=== PATIENT | female | born 1950 | race Caucasian/White ===

== ENCOUNTER 2016-04-12 13:57 | Inpatient (IN) | payer MEDICARE, OTHER ==
[~2016-04-12] VITALS: Ht 167.6 cm; Wt 82.0 kg
[~2016-04-12 13:57] MED LIST: ADVAI500I PO; CITA-48 PO; DUONI NEB; FURO20 PO; LORA0.5T PO; MONT10 PO; NORC7.5T PO; PRED5TAB PO; PROT40TA PO
--- NOTE | 2016-04-12 14:43 | PD ---
HPI Chief Complaint: Fall Time Seen by Provider: 14:43 Travel History International Travel<30 days: No Contact w/Intl Traveler<30days: No History of Present Illness HPI Patient is a 65-year-old female brought in by EMS for evaluation after a fall. Patient presents complaining of right knee pain. Patient states she had tripped over her oxygen tubing. Patient is currently on hospice care for end- stage COPD. She reports the pain in her right knee has a 10 out of 10 and describes as aching and throbbing. She denies any head injury or loss of consciousness. PFSH Past Medical History Arthritis: Yes Asthma: No Anxiety: Yes Depression: Yes Cancer: No Cardiovascular Problems: No COPD: Yes (end-stage) Cerebrovascular Accident: No Diminished Hearing: No Deep Vein Thrombosis: Yes Endocrine: No GERD: Yes Genitourinary: No Immune Disorder: No Musculoskeletal: Yes (ARTHRITIS) Psychiatric: No Migraines: No Pneumonia: Yes Sleep Apnea: No Menopausal: Yes : 3 Para: 3 Miscarriage: 0 : 0 Past Surgical History Abdominal Surgery: No Appendectomy: Yes Cardiac Surgery: No Cholecystectomy: Yes Ear Surgery: No Endocrine Surgery: No Eye Surgery: Yes (LENS REPLACEMENT) Genitourinary Surgery: No Gynecologic Surgery: No Hysterectomy: Yes Oral Surgery: No Thoracic Surgery: No Other Surgery: Yes (blood clot removal right leg) Social History Alcohol Use: No Tobacco Use: Yes (2 PPD) Substance Use: No Allergies-Medications (Allergen,Severity, Reaction): Coded Allergies: Sulfa (Verified Allergy, Severe, 04/12/16) Reported Meds & Prescriptions Reported Meds & Active Scripts Active Reported Doc-Q-Lax (Sennosides-Docusate Sodium) 8.6-50 Mg Tab 1 Tab PO HS Pantoprazole (Pantoprazole Sodium) 40 Mg Tab 40 Mg PO DAILY Morphine Liq (Morphine Sulfate) 20 Mg/5 Ml Liq 10 Mg PO Q2HR PRN Morphine Liq (Morphine Sulfate) 20 Mg/5 Ml Liq 5 Mg PO Q2HR PRN Montelukast (Montelukast Sodium) 10 Mg Tab 10 Mg PO HS Duoneb (Ipratropium-Albuterol Neb) 0.5-2.5 Mg/3 Ml Neb 1 Nebule INH Q2HR PRN Omeprazole 20 Mg Tab 20 Mg PO DAILY Hydralazine (Hydralazine HCl) 50 Mg Tab 50 Mg PO TID Take with a meal Furosemide 20 Mg Tab 20 Mg PO DAILY PRN Dexamethasone 2 Mg Tab 2 Mg PO BID Citalopram (Citalopram Hydrobromide) 40 Mg Tab 40 Mg PO DAILY Lorazepam 0.5 Mg Tab 0.5 Mg PO Q2HR PRN Bisacodyl Supp (Bisacodyl) 10 Mg Supp 10 Mg RECTAL DAILY PRN Proair Respiclick Inh (Albuterol Sulfate) 90 Mcg/Act Aerp 2 Puff INH Q2HR PRN Hydrocodone-Acetaminophen 7.5-325 mg Tab 1 Tab PO Q6H PRN Review of Systems Except as stated in HPI: all other systems reviewed are Neg Musculoskeletal: Positive: Arthralgias, Limited ROM, Pain, Other (deformity to right knee) Physical Exam Narrative GENERAL: Well-developed, well-nourished, female. Appears older than stated age, resting comfortably in no acute distress. SKIN: Warm and dry. HEAD: Atraumatic. Normocephalic. EYES: Pupils equal and round. No scleral icterus. No injection or drainage. ENT: No nasal bleeding or discharge. Mucous membranes pink and moist. NECK: Trachea midline. No JVD. CARDIOVASCULAR: Regular rate and rhythm. No murmur appreciated. RESPIRATORY: No accessory muscle use. Diminished in bases significantly, expiratory wheezing noted in upper lung armijo. No tachypnea, no nasal flaring , no retractions noted. GASTROINTESTINAL: Abdomen soft, non-tender, nondistended. Hepatic and splenic margins not palpable. MUSCULOSKELETAL: Right knee deformity. No clubbing. No cyanosis. No edema. Positive pedal pulses, process of the second capillary refill. Patient is neurovascularly intact. NEUROLOGICAL: Awake and alert. No obvious cranial nerve deficits. Motor grossly within normal limits. Normal speech. PSYCHIATRIC: Appropriate mood and affect; insight and judgment normal. Data Data Last Documented VS Vital Signs Date Time Temp Pulse Resp B/P Pulse Ox O2 Delivery O2 Flow Rate FiO2 04/12/16 14:44 98.9 81 17 165/71 98 Orders Knee, Complete (4vws) (04/12/16 ) Ondansetron Inj (Zofran Inj) (04/12/16 14:45) Ice / Cold Pack PRN (04/12/16 14:40) Morphine Inj (Morphine Inj) (04/12/16 14:45) Consult Orthopedic (04/12/16 ) Diet Npo (04/13/16 Breakfast) [employer] Request For Service (04/12/16 16:45) Complete Blood Count With Diff (04/12/16 16:49) Basic Metabolic Panel (Bmp) (04/12/16 16:49) Act Partial Throm Time (Ptt) (04/12/16 16:49) Prothrombin Time / Inr (Pt) (04/12/16 16:49) Iv Access Insert/Monitor (04/12/16 16:49) Oximetry (04/12/16 16:49) ^ Improvement Intern / Telemetry (04/12/16 16:49) Diet Heart Healthy (04/12/16 Dinner) Albuterol-Ipratropium Neb (Duoneb Neb) (04/12/16 17:15) Morphine Inj (Morphine Inj) (04/12/16 17:15) (Hub Use Only)Inp Phy Cons/Ref (04/12/16 ) Admit Order (Ed Use Only) (04/12/16 17:21) Labs Laboratory Tests Test 04/12/16 17:00 White Blood Count 8.6 TH/MM3 Red Blood Count 3.58 MIL/MM3 Hemoglobin 10.3 GM/DL Hematocrit 32.0 % Mean Corpuscular Volume 89.5 FL Mean Corpuscular Hemoglobin 28.9 PG Mean Corpuscular Hemoglobin 32.3 % Concent Red Cell Distribution Width 14.8 % Platelet Count 146 TH/MM3 Mean Platelet Volume 9.2 FL Neutrophils (%) (Auto) 83.4 % Lymphocytes (%) (Auto) 10.3 % Monocytes (%) (Auto) 5.4 % Eosinophils (%) (Auto) 0.5 % Basophils (%) (Auto) 0.4 % Neutrophils # (Auto) 7.1 TH/MM3 Lymphocytes # (Auto) 0.9 TH/MM3 Monocytes # (Auto) 0.5 TH/MM3 Eosinophils # (Auto) 0.0 TH/MM3 Basophils # (Auto) 0.0 TH/MM3 CBC Comment DIFF FINAL Differential Comment Prothrombin Time 10.2 SEC Prothromb Time International 0.9 RATIO Ratio Activated Partial 23.4 SEC Thromboplast Time Sodium Level 142 MEQ/L Potassium Level 3.9 MEQ/L Chloride Level 102 MEQ/L Carbon Dioxide Level 36.0 MEQ/L Anion Gap 4 MEQ/L Blood Urea Nitrogen 13 MG/DL Creatinine 0.50 MG/DL Estimat Glomerular Filtration 124 ML/MIN Rate Random Glucose 124 MG/DL Calcium Level 8.1 MG/DL MDM Medical Decision Making Medical Screen Exam Complete: Yes Emergency Medical Condition: Yes Interpretation(s) Vital Signs Date Time Temp Pulse Resp B/P Pulse Ox O2 Delivery O2 Flow Rate FiO2 04/12/16 14:44 98.9 81 17 165/71 98 Differential Diagnosis Fracture versus dislocation versus sprain versus strain versus other Narrative Course Patient is a 65-year-old female who presented to emergency for evaluation of right knee pain after she sustained a mechanical fall at home this morning. She tripped over her oxygen tubing. Her vital signs are stable, she is on her home dose of oxygen at 10 L. She reports a 10 out of 10 pain, pain medication ordered by my attending physician. Imaging ordered. X-ray of the right knee shows a distal right femoral metaphysis fracture. Dr. Moctezuma was paged for consult. He recommended patient be admitted to medicine, camvas knee splint be placed as well as a cold machine on the right knee. Patient is to be made nothing by mouth after midnight. Patient needs a medically cleared before surgery. Discussed with residents who accepted admission for Dr. Sorenson. Preop labs, chest x-ray, EKG ordered and pending. CBC, chemistry, coags reviewed and are unremarkable Chest x-ray shows linear atelectasis at the right lung base. Diagnosis Primary Impression: Fracture of distal femur Qualified Code: S72.401A - Closed fracture of distal end of right femur, unspecified fracture morphology, initial encounter Additional Impression: COPD (chronic obstructive pulmonary disease) Qualified Code: J44.9 - Chronic obstructive pulmonary disease, unspecified COPD type Admitting Information Admitting Physician Requests: Admit Condition: Stable Naye Belle Apr 12, 2016 14:43
[2016-04-12 14:44] VITALS: BP 165/71; PULSE 81; RESP 17; TEMP 98.9; O2SAT 98
[2016-04-12] MEDS ORDERED: MORPHINE SULFATE 4 MG/ML INJ IV PUSH ONE ×2 (14:45→17:15)
[2016-04-12] MEDS ORDERED: ONDANSETRON HCL 4 MG/2 ML VIAL IV PUSH ONE (14:45)
--- NOTE | 2016-04-12 15:51 | RADRPT ---
EXAM DATE/TIME: 04/12/2016 15:41 [facility] COMPARISON: No previous studies available for comparison. INDICATIONS : Tripped and fell on right knee, right knee is in bent position and is swollen and painful, unable to extend leg MEDICAL HISTORY : None. SURGICAL HISTORY : Total knee replacement, right. right knee replaced in 2006 ENCOUNTER: Initial ACUITY: 1 day PAIN SCORE: 10/10 LOCATION: Right knee FINDINGS: Four view examination of the right knee demonstrates a total knee replacement. There is an angulated supracondylar metaphyseal fracture of the distal right femur. The proximal tibia and fibular are intact. CONCLUSION: Angulated fracture involving the distal right femoral metaphysis cranial to a femoral prosthesis. Status post previous joint replacement. Mikey Alarcon MD on April 12, 2016 at 15:47 Board Certified Radiologist. This report was verified electronically.
[2016-04-12] MEDS ORDERED: FLUC200T2 PO (15:59)
[2016-04-12] MEDS ORDERED: ALBU1AER5 INH (15:59)
[2016-04-12] MEDS ORDERED: CITA40TA4 PO (15:59)
[2016-04-12] MEDS ORDERED: MORP10S2 PO (15:59)
[2016-04-12] MEDS ORDERED: PRED20 PO (15:59)
[2016-04-12] MEDS ORDERED: FEXO180T PO (15:59)
[2016-04-12] MEDS ORDERED: IPRASOL INH (15:59)
[2016-04-12] MEDS ORDERED: PANT40TA3 PO (15:59)
[2016-04-12] MEDS ORDERED: MONT10TA4 PO (15:59)
[2016-04-12] MEDS ORDERED: HYDR-3580 PO (15:59)
[2016-04-12] MEDS ORDERED: AZIT250T3 PO (15:59)
[2016-04-12] MEDS ORDERED: FURO20TA PO (15:59)
[2016-04-12] MEDS ORDERED: HYDR50TA15 PO (15:59)
[2016-04-12] MEDS ORDERED: DEXA2TAB PO (15:59)
[2016-04-12] MEDS ORDERED: LORA-373 PO (15:59)
[2016-04-12] MEDS ORDERED: BENZ1CAP8 PO (15:59)
[2016-04-12] MEDS ORDERED: BISA10SU3 RECTAL (15:59)
[2016-04-12] MEDS ORDERED: DOC-8.6T PO (15:59)
[2016-04-12] MEDS ORDERED: OMEP20TA PO (15:59)
[2016-04-12] MEDS ORDERED: LORA10TA PO (15:59)
[2016-04-12 17:29] LABS: AUTOMATED NEUTROPHIL # 7.1 TH/MM3 (1.8-7.7); BASOPHIL % 0.4 % (0.0-2.0); EOSINOPHIL % 0.5 % (0.0-4.0); HEMO FLAGS DIFF FINAL; LYMPH % 10.3 % (9.0-44.0); LYMPHOCYTE # 0.9 TH/MM3 (1.0-4.8); MEAN CELL VOLUME 89.5 FL (80.0-100.0); MEAN CORPUSCULAR HEMOGLOBIN 28.9 PG (27.0-34.0); MEAN CORPUSCULAR HGB CONC 32.3 % (32.0-36.0); MONO % 5.4 % (0.0-8.0); NEUT % 83.4 % (16.0-70.0); PLATELET COUNT 146 TH/MM3 (150-450); RED BLOOD COUNT 3.58 MIL/MM3 (4.00-5.30); RED CELL DISTRIBUTION WIDTH 14.8 % (11.6-17.2); WHITE BLOOD COUNT 8.6 TH/MM3 (4.0-11.0)
[2016-04-12] MEDS: RESP: ALBUTEROL 2.5 MG/IPRATROPIUM 0.5 MG NEB (SCH) INH ×2 (17:32→17:33)
[2016-04-12 17:44] LABS: APTT (PATIENT) 23.4 SEC (24.3-30.1); INTERNATIONAL NORMALIZED RATIO 0.9 RATIO; PROTHROMBIN TIME - PATIENT 10.2 SEC (9.8-11.6)
[2016-04-12 18:10] LABS: POTASSIUM 3.9 MEQ/L (3.5-5.1)
--- NOTE | 2016-04-12 18:14 | RADRPT ---
EXAM DATE/TIME: 04/12/2016 17:44 [facility] COMPARISON: CHEST SINGLE AP, January 08, 2016, 18:12. INDICATIONS : Evaluate for pneumonia,pneumothorax, and communicable diseases. Pre-op for right leg surgery. MEDICAL HISTORY : Chronic obstructive pulmonary disease. SURGICAL HISTORY : None. ENCOUNTER: Initial ACUITY: 1 day PAIN SCORE: 0/10 LOCATION: Bilateral chest FINDINGS: There is subsegmental atelectasis at the right lung base. Lungs are otherwise clear. No pneumothorax or pneumonia. Cardiomegaly and aortic calcification the osseous structures are intact. CONCLUSION: Linear atelectasis right base. Andres Warren MD on April 12, 2016 at 18:13 Board Certified Radiologist. This report was verified electronically.
[2016-04-12 19:00] VITALS: BP 127/74; PULSE 94; RESP 18; O2SAT 96
[2016-04-12] MEDS ORDERED: FUROSEMIDE 20 MG TAB PO PRN (19:00)
--- NOTE | 2016-04-12 19:11 | HHI.HP ---
[facility] Service Family Medicine Primary Care Physician Tyron Smith M.D. Admission Diagnosis FEMUR FRACTURE/COPD Diagnoses: Chief Complaint: leg pain International Travel<30 Days: No Contact w/Intl Traveler<30days: No Known Affected Area: No History of Present Illness Patient is a 65 year old female with a PMH significant for COPD on 10L O2 and history of PE who presents today with leg pain after a fall. Patient states that she was moving objects in her closet when she turned around and tripped over her oxygen cord. She fell and landed on the right side of her face and right leg. She immediately felt pain in her right leg. She denies LOC. She was not dizzy preceding the fall and remembers the fall. Her pain is currently a 5-6/10. The pain improves with morphine. She states that until the fall, she was in her baseline state of health. She denies any fever, chills, abdominal pain, headache, or visual changes. She endorses nausea. Of note, she is on Hospice and is DNR. Review of Systems Constitutional: DENIES: Fever, Chills, Dizziness Eyes: DENIES: Vision loss Ears, nose, mouth, throat: DENIES: Throat pain Respiratory: COMPLAINS OF: Shortness of breath, DENIES: Cough Cardiovascular: DENIES: Chest pain, Lower Extremity Edema Gastrointestinal: DENIES: Abdominal pain, Diarrhea, Nausea, Vomiting Genitourinary: DENIES: Hematuria, Dysuria Musculoskeletal: COMPLAINS OF: Muscle aches, DENIES: Back pain Integumentary: DENIES: Rash Neurologic: DENIES: Headache Past Family Social History Past Medical History COPD, Chronic respiratory failure on 10L O2 at home, prior intubation Tobacco H/o PE Past Surgical History Cholecystectomy Hysterectomy Right Knee Replacement Reported Medications Reported Meds & Active Scripts Active Reported Fexofenadine (Fexofenadine HCl) 180 Mg Tab 180 Mg PO DAILY Loratadine 10 Mg Tab 10 Mg PO DAILY Prednisone 20 Mg Tab 40 Mg PO DIRECTED Benzonatate 100 Mg Cap 100 Mg PO TID PRN Fluconazole 200 Mg Tab 200 Mg PO DAILY Azithromycin 250 Mg Tab 250 Mg PO DAILY Hydrocodone-Acetaminophen 7.5-325 mg Tab 1 Tab PO Q6H PRN Doc-Q-Lax (Sennosides-Docusate Sodium) 8.6-50 Mg Tab 1 Tab PO HS Pantoprazole (Pantoprazole Sodium) 40 Mg Tab 40 Mg PO DAILY Morphine Liq (Morphine Sulfate) 20 Mg/5 Ml Liq 10 Mg PO Q2HR PRN Morphine Liq (Morphine Sulfate) 20 Mg/5 Ml Liq 5 Mg PO Q2HR PRN Montelukast (Montelukast Sodium) 10 Mg Tab 10 Mg PO HS Duoneb (Ipratropium-Albuterol Neb) 0.5-2.5 Mg/3 Ml Neb 1 Nebule INH Q2HR PRN Omeprazole 20 Mg Tab 20 Mg PO DAILY Hydralazine (Hydralazine HCl) 50 Mg Tab 50 Mg PO TID Take with a meal Furosemide 20 Mg Tab 20 Mg PO DAILY PRN Dexamethasone 2 Mg Tab 2 Mg PO BID Citalopram (Citalopram Hydrobromide) 40 Mg Tab 40 Mg PO DAILY Lorazepam 0.5 Mg Tab 0.5 Mg PO Q2HR PRN Bisacodyl Supp (Bisacodyl) 10 Mg Supp 10 Mg RECTAL DAILY PRN Proair Respiclick Inh (Albuterol Sulfate) 90 Mcg/Act Aerp 2 Puff INH Q2HR PRN Allergies: Coded Allergies: Sulfa (Verified Allergy, Severe, 04/12/16) Levaquin (Verified Allergy, Mild, Generalized Rash, 04/12/16) Active Ordered Medications Current Medications Medications (Trade) Dose Ordered Sig/Marcie Route Start Time Stop Time Status Last Admin (CeleXA) 40 mg DAILY PO 04/13/16 09:00 (Lasix) 20 mg DAILY PRN PO 04/12/16 19:00 (Claritin) 10 mg DAILY PO 04/13/16 09:00 (Singulair) 10 mg HS PO 04/12/16 21:00 (Protonix) 40 mg DAILY PO 04/13/16 09:00 (Vonnie-Colace) 1 tab HS PO 04/12/16 21:00 (NS Flush) 2 ml UNSCH PRN FLUSH 04/12/16 19:15 (NS Flush) 2 ml BID FLUSH 04/12/16 21:00 (Tylenol) 650 mg Q4H PRN PO 04/12/16 19:15 (Zofran Inj) 4 mg Q6H PRN IVP 04/12/16 19:15 (Narcan Inj) 0.4 mg UNSCH PRN IV 04/12/16 19:15 Family History Significant family history of heart disease and unspecified cancer. Social History Tobacco: 1/2 ppd x 50 years Alcohol: None Illicit Drug Use: None Lives alone. On hospice. Physical Exam Vital Signs Vital Signs Date Time Temp Pulse Resp B/P Pulse Ox O2 Delivery O2 Flow Rate FiO2 04/12/16 14:44 98.9 81 17 165/71 98 Physical Exam GENERAL: This is a well-nourished, well-developed female patient who appears in pain. SKIN: No rashes, ecchymoses or lesions. Cool and dry. Pallor. HEAD: Atraumatic. Normocephalic. No temporal or scalp tenderness. EYES: Pupils equal round and reactive. Extraocular motions intact. No scleral icterus. No injection or drainage. ENT: Nose without bleeding, purulent drainage or septal hematoma. Throat without erythema, tonsillar hypertrophy or exudate. Uvula midline. Airway patent. Mucous membranes dry. NECK: Trachea midline. No JVD or lymphadenopathy. Supple, nontender, no meningeal signs. CARDIOVASCULAR: Regular rate and rhythm without murmurs, gallops, or rubs. RESPIRATORY: Decreased breath sounds bilaterally. Breath sounds equal bilaterally. Occasional inspiratory and expiratory wheezes bilaterally. GASTROINTESTINAL: Abdomen soft, non-tender, nondistended. No hepato-splenomegaly , or palpable masses. No guarding. MUSCULOSKELETAL: Right lower extremity in immobilizer brace. Strong pedal pulses bilaterally. Full ROM of toes bilaterally. NEUROLOGICAL: Awake and alert. Cranial nerves II through XII intact. Motor and sensory grossly within normal limits. Normal speech. Laboratory Laboratory Tests Test 04/12/16 17:00 White Blood Count 8.6 Red Blood Count 3.58 Hemoglobin 10.3 Hematocrit 32.0 Mean Corpuscular Volume 89.5 Mean Corpuscular Hemoglobin 28.9 Mean Corpuscular Hemoglobin 32.3 Concent Red Cell Distribution Width 14.8 Platelet Count 146 Mean Platelet Volume 9.2 Neutrophils (%) (Auto) 83.4 Lymphocytes (%) (Auto) 10.3 Monocytes (%) (Auto) 5.4 Eosinophils (%) (Auto) 0.5 Basophils (%) (Auto) 0.4 Neutrophils # (Auto) 7.1 Lymphocytes # (Auto) 0.9 Monocytes # (Auto) 0.5 Eosinophils # (Auto) 0.0 Basophils # (Auto) 0.0 CBC Comment DIFF FINAL Differential Comment Prothrombin Time 10.2 Prothromb Time International 0.9 Ratio Activated Partial 23.4 Thromboplast Time Sodium Level 142 Potassium Level 3.9 Chloride Level 102 Carbon Dioxide Level 36.0 Anion Gap 4 Blood Urea Nitrogen 13 Creatinine 0.50 Estimat Glomerular Filtration 124 Rate Random Glucose 124 Calcium Level 8.1 Result Diagram: 04/12/16 1700 04/12/16 1700 Imaging Last Impressions Knee X-Ray 04/12/16 0000 Signed Impressions: Service Date/Time: Tuesday, April 12, 2016 15:41 - CONCLUSION: Angulated fracture involving the distal right femoral metaphysis cranial to a femoral prosthesis. Status post previous joint replacement. Mikey Alarcon MD Assessment and Plan Assessment and Plan Patient is a 65 year old female with a PMH significant for COPD on 10L O2 and history of PE who presents today with leg pain after a fall and is admitted for distal right femoral fracture. Code Status DNR Discussed Condition With dw Dr. Sorenson and Dr. Bergman Problem List: (1) Fracture of distal femur Status: Acute Plan: Right knee Xray significant for angulated fracture involving the distal right femoral metaphysis cranial to a femoral prosthesis. Status post previous joint replacement. Pre-Op labs: CBC shows mild anemia, BMP shows elevated CO2 of 36.0, coags wnl CXR shows linear atelectasis at right base. Plan: - Pain control with Giltner 5-325mg PRN pain 3-5, Giltner 10-325mg PRN pain 6-10, Morphine 4mg IV Q3H PRN Breakthrough pain - Consult Orthopedic Surgery, Dr. Moctezuma- plan for surgery in AM - NPO after midnight - Incentive spirometry - Obtain EKG (2) COPD (chronic obstructive pulmonary disease) Status: Chronic Plan: On 10L O2 at home Currently saturating 96% on 8L O2 DNR, on Hospice Duonebs Q4H PRN SOB/Wheezing Continue home Lasix 20mg PO daily (3) GERD (gastroesophageal reflux disease) Status: Acute Plan: Continue home dose of Protonix 40mg PO daily (4) MDD (major depressive disorder) Status: Acute Plan: Continue home dose of Celexa 40mg PO daily (5) Nutrition, metabolism, and development symptoms Status: Acute Plan: Fluids: None at this time, careful with advanced COPD Electrolytes: wnl, continue to monitor and replete as needed Nutrition: Heart Healthy Diet, NPO after midnight in anticipation of surgery in AM DVT PPx: SCD's, hold chemical anticoagulation for surgery in AM Physician Certification 2 Midnight Certification Type: Admission for Inpatient Services Order for Inpatient Services The services are ordered in accordance with Medicare regulations or non- Medicare payer requirements, as applicable. In the case of services not specified as inpatient-only, they are appropriately provided as inpatient services in accordance with the 2-midnight benchmark. Estimated LOS (days): 2 days is the estimated time the patient will need to remain in the hospital, assuming treatment plan goals are met and no additional complications. Post-Hospital Plan: Home Problem Qualifiers (1) Fracture of distal femur: Qualified Code: S72.401A - Closed fracture of distal end of right femur, unspecified fracture morphology, initial encounter (2) COPD (chronic obstructive pulmonary disease): Qualified Code: J44.9 - Chronic obstructive pulmonary disease, unspecified COPD type (3) GERD (gastroesophageal reflux disease): Qualified Code: K21.9 - Gastroesophageal reflux disease, esophagitis presence not specified (4) MDD (major depressive disorder): Qualified Code: F33.1 - Moderate episode of recurrent major depressive disorder Angela Posey MD R2 Apr 12, 2016 19:11
[2016-04-12] MEDS ORDERED: ACETAMINOPHEN 325 MG TAB PO PRN (19:15)
[2016-04-12] MEDS ORDERED: NALOXONE HCL 0.4 MG/ML AMP IV PRN ×2 (19:15→20:15)
[2016-04-12] MEDS ORDERED: SODIUM CHLORIDE 0.9% FLUSH 5 ML FLUSH FLUSH PRN (19:15)
[2016-04-12] MEDS ORDERED: ONDANSETRON HCL 4 MG/2 ML VIAL IVP PRN (19:15)
[2016-04-12] MEDS ORDERED: ACETAMINOPHEN/HYDROcodone 325 MG/5 MG TAB PO PRN (20:15)
[2016-04-12] MEDS ORDERED: ACETAMINOPHEN/HYDROcodone 325 MG/10 MG TAB PO PRN (20:15)
[2016-04-12] MEDS: MONTELUKAST SODIUM 10 MG TAB PO SCH (21:00)
[2016-04-12] MEDS: DOCUSATE SODIUM 50 MG/SENNA 8.6 MG TAB PO SCH (21:00)
[2016-04-12] MEDS: MORPHINE SULFATE 4 MG/ML INJ IV PRN (21:08)
[2016-04-12] MEDS: LACTATED RINGER'S 1000 ML IV SCH (22:15)
[2016-04-12] MEDS ORDERED: SODIUM CHLORID 0.9% 500 ML IV SCH (22:15)
[2016-04-12] MEDS ORDERED: METOPROLOL TARTRATE 25 MG TAB PO PRN (22:15)
[2016-04-12] MEDS ORDERED: INSULIN HUMAN REGULAR 1,000 UNITS/10 ML VIAL SQ PRN (22:15)
[2016-04-13] VITALS (10 sets, daily range): BP systolic 114–141; BP diastolic 55–76; PULSE 72–100; RESP 18–20; TEMP 96.4–99.8; O2SAT 90–99
[2016-04-13] MEDS: RESP: ALBUTEROL 2.5 MG/IPRATROPIUM 0.5 MG NEB (PRN) NEB ×3 (00:29→16:10)
[2016-04-13] MEDS: MORPHINE SULFATE 4 MG/ML INJ IV PRN ×2 (05:44→08:35)
[2016-04-13 06:26] LABS: BACTERIA, URINE OCC /hpf; BLOOD, URINE SMALL (NEG); GLUCOSE,URINE NEG (NEG); KETONE, URINE NEG (NEG); MUCUS URINE FEW /lpf (OCC); NITRITE,URINE NEG (NEG); PH, URINE 5.5 (5.0-8.5); RENAL EPITHELIAL CELLS <1 /hpf; SQUAMOUS EPITHELIAL CELL URINE 2 /hpf (0-5); TRANSITIONAL EPI CELLS, URINE <1 /hpf; URINE COLOR YELLOW (YELLW/STRAW)
[2016-04-13 06:26] LABS: BASOPHIL % 0.3 % (0.0-2.0); HEMATOCRIT 31.6 % (35.0-46.0); HEMO FLAGS DIFF FINAL; LYMPH % 8.6 % (9.0-44.0); MEAN CELL VOLUME 89.5 FL (80.0-100.0); MEAN CORPUSCULAR HEMOGLOBIN 28.3 PG (27.0-34.0); MEAN CORPUSCULAR HGB CONC 31.6 % (32.0-36.0); MONO % 6.6 % (0.0-8.0); NEUT % 84.5 % (16.0-70.0); PLATELET COUNT 156 TH/MM3 (150-450); RED BLOOD COUNT 3.53 MIL/MM3 (4.00-5.30); RED CELL DISTRIBUTION WIDTH 14.4 % (11.6-17.2); WHITE BLOOD COUNT 11.8 TH/MM3 (4.0-11.0)
[2016-04-13 06:27] LABS: COMMENT (UR) CULTURE INDICATED; CULTURE IF INDICATED CULTURE INDICATED
[2016-04-13 06:37] LABS: INTERNATIONAL NORMALIZED RATIO 0.9 RATIO; PROTHROMBIN TIME - PATIENT 10.3 SEC (9.8-11.6)
--- NOTE | 2016-04-13 06:38 | PD.ORT.PN ---
Subjective Subjective Remarks s/p fall at home right knee pain. significant history of smoking and end stage COPD on 10L of O2 at home. Objective Vitals Vital Signs Date Time Temp Pulse Resp B/P Pulse Ox O2 Delivery O2 Flow Rate FiO2 04/13/16 04:50 97.7 89 20 131/69 95 04/13/16 03:14 93 Nasal Cannula 9.00 04/13/16 01:05 98.2 72 20 135/76 95 04/12/16 19:00 94 18 127/74 96 Nasal Cannula 8 04/12/16 14:44 98.9 81 17 165/71 98 Result Diagram: 04/13/16 0458 04/12/16 1700 Other Results Laboratory Tests Test 04/12/16 17:00 Prothrombin Time 10.2 SEC (9.8-11.6) Prothromb Time International 0.9 RATIO Ratio Objective Remarks RLE: +CKS. knee flexed. full sensation distally. Assessment & Plan Assessment and Plan 1) Right Periprosthetic Distal Femur Fx -maintain brace -elevate leg so heel off of bed to prevent ulcer -NWB -resume diet -patient not a good surgical candidate due to health of lungs -will await medical consult and recommendations. if medicine decides she would do well with surgery, could potentially proceed. Chirag Bedolla Apr 13, 2016 06:38
[2016-04-13 06:50] LABS: ALKALINE PHOSPHATASE 56 U/L (45-117); ALT (GPT) 20 U/L (10-53); ANION GAP 4 MEQ/L (5-15); AST (GOT) 15 U/L (15-37); BICARBONATE 39.3 MEQ/L (21.0-32.0); BLOOD UREA NITROGEN 19 MG/DL (7-18); CHLORIDE 98 MEQ/L (98-107); GLOMERULAR FILTRATION RATE 100 ML/MIN (>89); POTASSIUM 4.1 MEQ/L (3.5-5.1); SODIUM (NA) 141 MEQ/L (136-145); TOTAL BILIRUBIN ADULT 0.4 MG/DL (0.2-1.0)
--- NOTE | 2016-04-13 06:55 | MB ---
cc: YARITZA JAEGER DATE OF CONSULTATION 04/13/2016 REASON FOR CONSULTATION Right distal femur periprosthetic fracture. CONSULTING PHYSICIAN Dr. Jl Sorenson MARISA Santo is a 65-year-old female who has a long history of COPD. She is chronically on 10 liters of oxygen at home. She was moving objects in her closet when she tripped over her oxygen cord. She fell and landed on her right side. She had immediate right leg pain. She denies dizziness, syncope or loss of consciousness. She was unable to stand or ambulate. Pain is worse with movement and is improved with rest. She is currently under Hospice care and is a DNR. She is currently awake and alert on the orthopedic floor. Her only complaint is right leg and knee. PAST MEDICAL HISTORY ILLNESSES 1. COPD 2. Tobacco abuse 3. History of PE. SURGERIES 1. Cholecystectomy 2. Hysterectomy 3. Right knee replacement MEDICATIONS 1. Fexofenadine 2. Loratadine 3. Prednisone 4. Fluconazole 5. Azithromycin 6. Hydrocodone 7. Pantoprazole 8. Morphine 9. DuoNeb 10. Omeprazole 11. Hydralazine 12. Citalopram 13. Dexamethasone 14. ProAir ALLERGIES SULFA FAMILY HISTORY Positive for heart disease. SOCIAL HISTORY The patient has been smoking for 50 years. She denies alcohol or drug use. REVIEW OF SYSTEMS The patient denies headache, visual changes, neck pain, chest pain, abdominal pain, nausea, vomiting or recent weight loss or numbness or tingling of extremities. She has chronic shortness of breath. She has right leg pain. PHYSICAL EXAMINATION The patient is a well-developed, well-nourished 65-year female who appears older than her stated age. She is awake and alert. VITAL SIGNS: Temperature 97.7, pulse 89, respirations 20, blood pressure 131/69, O2 sat is 95% on 9 liters nasal cannula. HEAD: The patient is normocephalic. EYES: Pupils are equal. NECK: Soft, nontender. Trachea is midline. ABDOMEN: Soft, nontender, nondistended. EXTREMITIES: Examination of bilateral upper extremities reveals no obvious pain or deformity with shoulder, elbow or wrist motion. She has intact sensation in all fingers. She has good cap refill in all fingers. Skin is intact. Radial pulses are palpable. Sensation is intact in the radial, ulnar and median nerve distributions. Examination of left leg reveals no pain with hip, knee or ankle motion. Skin is intact. Dorsalis pedis pulse is palpable. Sensation is grossly intact. Examination of right leg reveals minimal tenderness around her hip. She is diffusely tender around the knee. Thigh and calf compartments are soft. She has pain with any motion. Sensation is grossly intact to her right foot. She has good cap refill in her foot. X-RAYS X-rays of right knee reviewed. X-rays reveal an angulated right distal femur periprosthetic fracture. IMPRESSION 1. Angulated right distal femur periprosthetic fracture. 2. COPD 3. Chronic smoking dependence PLAN Treatment options were discussed with the patient. At this point, the patient is not a very good surgical candidate. Her end-stage COPD would make her a very high risk candidate for surgery. Option would include nonoperative treatment with a knee immobilizer. Given her type of fracture, I am not certain that the fracture would go head and heal. However with surgery, the patient has a high risk of developing respiratory failure and may be on a ventilator chronically. Nonoperative treatment may be the patient's best option. The patient elected think about these options. All questions were answered. MD TONY Montejo/LAM /6:39 AM /6:48 AM OTF
[2016-04-13] MEDS: CITALOPRAM HYDROBROMIDE 40 MG TAB PO SCH (08:31)
[2016-04-13] MEDS: PANTOPRAZOLE SOD 40 MG DELAYED RELEASE TAB PO SCH (08:31)
[2016-04-13] MEDS: cefTRIAXone INJ 1,000 MG in SODIUM CHLORIDE 0.9% INJ 100 ML IV SCH (08:31)
[2016-04-13] MEDS: LORATADINE 10 MG TAB PO SCH (08:31)
[2016-04-13] MEDS: SODIUM CHLORIDE 0.9% FLUSH 5 ML FLUSH FLUSH SCH ×2 (08:32→21:00)
[2016-04-13] MEDS ORDERED: HYDROmorphone HCL 2 MG TAB PO PRN (10:15)
[2016-04-13] MEDS ORDERED: PILL SPLITTER OTHER PRN (10:30)
[2016-04-13] MEDS: MORPHINE SULFATE 4 MG/ML INJ IV SCH ×3 (11:10→19:52)
--- NOTE | 2016-04-13 11:26 | HHI.FPPN ---
Subjective Remarks Patient seen and examined this morning. No overnight events. Pain uncontrolled this am. Required her home dose of Nasal canula, approx 9 L. Did use dimple mask this am Family is at bedside. Condition and imaging reviewed with patient. (Tamika Conte MD R3) Objective Vitals Vital Signs Date Time Temp Pulse Resp B/P Pulse Ox O2 Delivery O2 Flow Rate FiO2 04/13/16 10:47 94 Nasal Cannula 9.00 04/13/16 10:32 96 Simple Mask 10.00 04/13/16 09:03 92 04/13/16 08:00 96.4 100 18 139/61 95 04/13/16 07:40 90 Nasal Cannula 10.00 04/13/16 04:50 97.7 89 20 131/69 95 04/13/16 03:14 93 Nasal Cannula 9.00 04/13/16 01:05 98.2 72 20 135/76 95 04/12/16 19:00 94 18 127/74 96 Nasal Cannula 8 04/12/16 14:44 98 10.00 04/12/16 14:44 98.9 81 17 165/71 98 (Tamika Conte MD R3) Result Diagram: 04/13/16 0458 04/13/16 0458 Imaging Last Impressions Knee X-Ray 04/12/16 0000 Signed Impressions: Service Date/Time: Tuesday, April 12, 2016 15:41 - CONCLUSION: Angulated fracture involving the distal right femoral metaphysis cranial to a femoral prosthesis. Status post previous joint replacement. Mikey Alarcon MD Chest X-Ray 04/12/16 0000 Signed Impressions: Service Date/Time: Tuesday, April 12, 2016 17:44 - CONCLUSION: Linear atelectasis right base. Andres Warren MD Objective Remarks GENERAL: This is a well-nourished, well-developed female patient who appears in pain. SKIN: No rashes, ecchymoses or lesions. Cool and dry. Pallor. HEAD: Atraumatic. Normocephalic. No temporal or scalp tenderness. EYES: Pupils equal round and reactive. Extraocular motions intact. No scleral icterus. No injection or drainage. ENT: Nose without bleeding, purulent drainage or septal hematoma. Throat without erythema, tonsillar hypertrophy or exudate. Uvula midline. Airway patent. Mucous membranes dry. NECK: Trachea midline. No JVD or lymphadenopathy. Supple, nontender, no meningeal signs. CARDIOVASCULAR: Regular rate and rhythm without murmurs, gallops, or rubs. RESPIRATORY: Decreased breath sounds bilaterally. Breath sounds equal bilaterally. Occasional inspiratory and expiratory wheezes bilaterally. GASTROINTESTINAL: Abdomen soft, non-tender, nondistended. No hepato-splenomegaly , or palpable masses. No guarding. MUSCULOSKELETAL: Right lower extremity in immobilizer brace. Strong pedal pulses bilaterally. Full ROM of toes bilaterally. NEUROLOGICAL: Awake and alert. Cranial nerves II through XII intact. Motor and sensory grossly within normal limits. Normal speech. (Tamika Conte MD R3) A/P Assessment and Plan Patient is a 65 year old female with a PMH significant for COPD on 10L O2 and history of PE who presents today with leg pain after a fall and is admitted for distal right femoral fracture. Discharge Planning d/c pending ortho workup, undecided at this time if patient will have surgery. Seen discussed with aKlpesh Raza, Pacheco (Tamika Conte MD R3) Attending Attestation A detailed discussion with Dr Conte, Dr Posey, Dr Bergman and Dr Dyson about patients admission was held this morning, patient was then seen and examined by the team, agree with the contents of this note,Assessment and Plan appropiate, See Orders. (Jl Sorenson MD) Problem List: (1) Fracture of distal femur Status: Acute Plan: Right knee Xray significant for angulated fracture involving the distal right femoral metaphysis cranial to a femoral prosthesis. Status post previous joint replacement. Pre-Op labs: CBC shows mild anemia, BMP shows elevated CO2 of 36.0, coags wnl CXR shows linear atelectasis at right base. Plan: - Pain control with [place] 5-325mg PRN pain 3-5, [place] 10-325mg PRN pain 6-10, Morphine 4mg IV Q4H scheduled, dilaudid prn breakthrough pain - Evaluated by Dr. Chiang: end stage COPD makes her high surgical risk. non operative vs. operative management was discussed with patient. Patient currently deciding. - PFTs obtained, if FVC <1 will not clear the patient for surgery (2) COPD (chronic obstructive pulmonary disease) Status: Chronic Plan: On 10L O2 at home DNR, on Hospice Duonebs Q4H PRN SOB/Wheezing Continue home Lasix 20mg PO daily (3) GERD (gastroesophageal reflux disease) Status: Acute Plan: Continue home dose of Protonix 40mg PO daily (4) MDD (major depressive disorder) Status: Acute Plan: Continue home dose of Celexa 40mg PO daily (5) Nutrition, metabolism, and development symptoms Status: Acute Plan: Fluids: None at this time, careful with advanced COPD Electrolytes: wnl, continue to monitor and replete as needed Nutrition: Heart Healthy Diet, NPO after midnight in anticipation of surgery in AM DVT PPx: SCD's, hold chemical anticoagulation for surgery in AM (Tamika Conte MD R3) Problem Qualifiers (1) Fracture of distal femur: Qualified Code: S72.401A - Closed fracture of distal end of right femur, unspecified fracture morphology, initial encounter (2) COPD (chronic obstructive pulmonary disease): Qualified Code: J44.9 - Chronic obstructive pulmonary disease, unspecified COPD type (3) GERD (gastroesophageal reflux disease): Qualified Code: K21.9 - Gastroesophageal reflux disease, esophagitis presence not specified (4) MDD (major depressive disorder): Qualified Code: F33.1 - Moderate episode of recurrent major depressive disorder Tamika Conte MD R3 Apr 13, 2016 11:26 Jl Sorenson MD Apr 13, 2016 16:35
--- NOTE | 2016-04-13 17:34 | HHI.DCPOC ---
Discharge Care Plan Diagnosis: (1) Fracture of distal femur (2) Acute on chronic respiratory failure (3) COPD (chronic obstructive pulmonary disease) (4) MDD (major depressive disorder) (5) Anxiety (6) Hyperlipidemia (7) Hypertension Goals to Promote Your Health * To prevent worsening of your condition and complications * To maintain your health at the optimal level Directions to Meet Your Goals Take your medications as prescribed Follow your dietary instruction Follow activity as directed Keep your appointments as scheduled Take your immunizations and boosters as scheduled If your symptoms worsen call your PCP, if no PCP go to Urgent Care Center or Emergency Room Smoking is Dangerous to Your Health. Avoid second hand smoke Call the 24-hour hour crisis hotline for domestic abuse at Chelsea Bergman MD R1 Apr 13, 2016 17:33
--- NOTE | 2016-04-13 18:03 | HHI.FPPN ---
Addendum to progress note ADDENDUM Reason for addendum: Additonal documentation Additional information Spoke with Aida Avelar at 5pm. She stated family meeting tonight at 7-8pm to discuss patient care options. Pt is not eligible for surgical repair R fractured femur due to failure of pulmonary function tests and high baseline oxygen requirement (10L). As patient is on hospice, plan to discuss discharge to hospice facility for more efficient pain management, rehab, and OT therapy. Anticipate discharge to hospice facility tonight or tomorrow. From a medical standpoint, she is cleared to discharge to hospice, though patient will need additional pain medication at discharge, to be deferred to hospice team. DW: Chelsea Rueda MD R1 Apr 13, 2016 18:03
[2016-04-13] MEDS: DOCUSATE SODIUM 50 MG/SENNA 8.6 MG TAB PO SCH (21:00)
[2016-04-13] MEDS: MONTELUKAST SODIUM 10 MG TAB PO SCH (21:00)
[2016-04-13] MEDS: LACTATED RINGER'S 1000 ML IV SCH (22:15)
[2016-04-14 00:25] VITALS: BP 125/60; PULSE 89; RESP 18; TEMP 96.3; O2SAT 100
[2016-04-14] MEDS: MORPHINE SULFATE 4 MG/ML INJ IV SCH ×4 (01:35→12:09)
[2016-04-14 04:30] VITALS: BP 125/57; PULSE 91; RESP 19; TEMP 96.5; O2SAT 97
[2016-04-14] MEDS: RESP: ALBUTEROL 2.5 MG/IPRATROPIUM 0.5 MG NEB (PRN) NEB (04:56)
[2016-04-14 04:59] VITALS: O2SAT 93
[2016-04-14 05:44] LABS: HEMATOCRIT 28.5 % (35.0-46.0); MEAN CELL VOLUME 90.3 FL (80.0-100.0); MEAN CORPUSCULAR HEMOGLOBIN 29.2 PG (27.0-34.0); MEAN CORPUSCULAR HGB CONC 32.3 % (32.0-36.0); PLATELET COUNT 129 TH/MM3 (150-450); RED BLOOD COUNT 3.15 MIL/MM3 (4.00-5.30); RED CELL DISTRIBUTION WIDTH 14.3 % (11.6-17.2); REVIEW FLAG FINAL; WHITE BLOOD COUNT 10.6 TH/MM3 (4.0-11.0)
[2016-04-14 06:06] LABS: BICARBONATE 40.3 MEQ/L (21.0-32.0); POTASSIUM 3.9 MEQ/L (3.5-5.1)
--- NOTE | 2016-04-14 06:55 | PD.ORT.PN ---
Subjective Subjective Remarks s/p right distal femur fx seen by hospice and medical team yesterady. all agree that not safe for surgery. pain getting better. still signifcant pain in right knee Objective Vitals Vital Signs Date Time Temp Pulse Resp B/P Pulse Ox O2 Delivery O2 Flow Rate FiO2 04/14/16 04:59 93 Simple Mask 10.00 04/14/16 04:30 96.5 91 19 125/57 97 04/14/16 02:00 96 Simple Mask 04/14/16 00:25 96.3 89 18 125/60 100 04/13/16 23:00 99 Simple Mask 9.00 04/13/16 20:40 99 Simple Mask 10.00 04/13/16 20:20 98.8 87 18 141/60 99 04/13/16 16:00 99.8 95 18 125/58 95 04/13/16 12:00 98.5 92 18 114/55 97 04/13/16 10:47 94 Nasal Cannula 9.00 04/13/16 10:32 96 Simple Mask 10.00 04/13/16 09:03 92 04/13/16 08:00 96.4 100 18 139/61 95 04/13/16 07:40 90 Nasal Cannula 10.00 I/O 04/13/16 04/13/16 04/13/16 04/14/16 04/14/16 04/14/16 07:00 15:00 23:00 07:00 15:00 23:00 Intake Total 447 ml 120 ml Output Total 500 ml 250 ml Balance -53 ml -130 ml Intake Oral 240 ml 120 ml IV Total 207 ml Output Urine Total 500 ml 250 ml # Bowel Movements 0 0 Result Diagram: 04/14/1644004/14/16440 Objective Remarks RLE: +CKS. knee flexed. full sensation distally. Assessment & Plan Assessment and Plan 1) Right Periprosthetic Distal Femur Fx -maintain brace -elevate leg so heel off of bed to prevent ulcer -NWB -resume diet -patient not a good surgical candidate due to health of lungs -hospice and medical team agree that not surgical candidate. will proceed with conservative treatment -planned Dc to hospice today or tomorrow -f/u with Андрей or [facility]I in 2 weeks Chirag Bedolla Apr 14, 2016 06:55
[2016-04-14 08:00] VITALS: BP 119/56; PULSE 101; RESP 20; TEMP 96.2; O2SAT 93
[2016-04-14] MEDS: SODIUM CHLORIDE 0.9% FLUSH 5 ML FLUSH FLUSH SCH (09:00)
[2016-04-14 09:01] VITALS: O2SAT 97
[2016-04-14] MEDS: cefTRIAXone INJ 1,000 MG in SODIUM CHLORIDE 0.9% INJ 100 ML IV SCH (09:12)
[2016-04-14] MEDS: LORATADINE 10 MG TAB PO SCH (09:13)
[2016-04-14] MEDS: PANTOPRAZOLE SOD 40 MG DELAYED RELEASE TAB PO SCH (09:13)
[2016-04-14] MEDS: CITALOPRAM HYDROBROMIDE 40 MG TAB PO SCH (09:13)
[2016-04-14] MEDS: LACTATED RINGER'S 1000 ML IV SCH (09:16)
--- NOTE | 2016-04-14 09:54 | HHI.FPPN ---
Subjective Remarks No acute issues overnight. Vitals are stable, patient remains afebrile. O2 saturation 93-97% on 10L via simple mask. Right leg pain is better controlled today, however she continues to have pain. She denies any other concerns at this time. She is tolerating oral intake. Objective Vitals Vital Signs Date Time Temp Pulse Resp B/P Pulse Ox O2 Delivery O2 Flow Rate FiO2 04/14/16 09:09 96 Simple Mask 10.00 04/14/16 09:01 97 Simple Mask 10.00 04/14/16 08:00 96.2 101 20 119/56 93 04/14/16 04:59 93 Simple Mask 10.00 04/14/16 04:30 96.5 91 19 125/57 97 04/14/16 04:00 94 Simple Mask 9.00 04/14/16 02:00 96 Simple Mask 04/14/16 00:25 96.3 89 18 125/60 100 04/13/16 23:00 99 Simple Mask 9.00 04/13/16 20:40 99 Simple Mask 10.00 04/13/16 20:20 98.8 87 18 141/60 99 04/13/16 16:00 99.8 95 18 125/58 95 04/13/16 12:00 98.5 92 18 114/55 97 04/13/16 10:47 94 Nasal Cannula 9.00 04/13/16 10:32 96 Simple Mask 10.00 I/O 04/13/16 04/13/16 04/13/16 04/14/16 04/14/16 04/14/16 07:00 15:00 23:00 07:00 15:00 23:00 Intake Total 447 ml 120 ml 240 ml Output Total 500 ml 250 ml 450 ml Balance -53 ml -130 ml -210 ml Intake Oral 240 ml 120 ml 240 ml IV Total 207 ml Output Urine Total 500 ml 250 ml 450 ml # Bowel Movements 0 0 0 Result Diagram: 04/14/1644004/14/16440 Imaging Last Impressions Knee X-Ray 04/12/16 0000 Signed Impressions: Service Date/Time: Tuesday, April 12, 2016 15:41 - CONCLUSION: Angulated fracture involving the distal right femoral metaphysis cranial to a femoral prosthesis. Status post previous joint replacement. Mikey Alarcon MD Chest X-Ray 04/12/16 0000 Signed Impressions: Service Date/Time: Tuesday, April 12, 2016 17:44 - CONCLUSION: Linear atelectasis right base. Andres Warren MD Objective Remarks GENERAL: This is a well-nourished, well-developed female patient who appears comfortable. SKIN: No rashes, ecchymoses or lesions. Cool and dry. Pallor. HEAD: Atraumatic. Normocephalic. No temporal or scalp tenderness. EYES: Pupils equal round and reactive. Extraocular motions intact. No scleral icterus. No injection or drainage. ENT: Nose without bleeding, purulent drainage or septal hematoma. Throat without erythema, tonsillar hypertrophy or exudate. Uvula midline. Airway patent. Moist mucous membranes. NECK: Trachea midline. No JVD or lymphadenopathy. Supple, nontender, no meningeal signs. CARDIOVASCULAR: Regular rate and rhythm without murmurs, gallops, or rubs. RESPIRATORY: Decreased breath sounds bilaterally. Breath sounds equal bilaterally. Occasional inspiratory and expiratory wheezes bilaterally. GASTROINTESTINAL: Abdomen soft, non-tender, nondistended. No hepato-splenomegaly , or palpable masses. No guarding. MUSCULOSKELETAL: Right lower extremity in immobilizer brace. Strong pedal pulses bilaterally. Full ROM of toes bilaterally. NEUROLOGICAL: Awake and alert. Cranial nerves II through XII intact. Motor and sensory grossly within normal limits. Normal speech. A/P Assessment and Plan Patient is a 65 year old female with a PMH significant for COPD on 10L O2 and history of PE who presented after a fall and was admitted for distal right femoral fracture. Discharge Planning Anticipate discharge to hospice facility today. Problem List: (1) Fracture of distal femur Status: Acute Plan: Right knee Xray significant for angulated fracture involving the distal right femoral metaphysis cranial to a femoral prosthesis. Status post previous joint replacement. Pre-Op labs: CBC shows mild anemia, BMP shows elevated CO2 of 36.0, coags wnl CXR shows linear atelectasis at right base. PFT- patient unable to complete due to difficulty with deep inhalation and exhalation She is not a surgical candidate based on poor pulmonary function. Plan: - Pain control with [place] 5-325mg PRN pain 3-5, [place] 10-325mg PRN pain 6-10, Morphine 4mg IV Q4H scheduled, Dilaudid prn breakthrough pain - Evaluated by Dr. Chiang: Not a surgical candidate due to poor pulmonary function. Proceed with non operative management. Follow-up with Dr. Chiang in 2 weeks. (2) COPD (chronic obstructive pulmonary disease) Status: Chronic Plan: On 10L O2 at home DNR, on Hospice Duonebs Q4H PRN SOB/Wheezing Continue home Lasix 20mg PO daily (3) GERD (gastroesophageal reflux disease) Status: Acute Plan: Continue home dose of Protonix 40mg PO daily (4) MDD (major depressive disorder) Status: Acute Plan: Continue home dose of Celexa 40mg PO daily (5) Nutrition, metabolism, and development symptoms Status: Acute Plan: Fluids: None at this time, careful with advanced COPD Electrolytes: wnl, continue to monitor and replete as needed Nutrition: Heart Healthy Diet DVT PPx: SCD's sdw Dr. Pacheco Sorenson Problem Qualifiers (1) Fracture of distal femur: Qualified Code: S72.401A - Closed fracture of distal end of right femur, unspecified fracture morphology, initial encounter (2) COPD (chronic obstructive pulmonary disease): Qualified Code: J44.9 - Chronic obstructive pulmonary disease, unspecified COPD type (3) GERD (gastroesophageal reflux disease): Qualified Code: K21.9 - Gastroesophageal reflux disease, esophagitis presence not specified (4) MDD (major depressive disorder): Qualified Code: F33.1 - Moderate episode of recurrent major depressive disorder Angela Posey MD R2 Apr 14, 2016 09:54
[2016-04-14 11:38] VITALS: BP 100/41; PULSE 96; RESP 19; TEMP 96.5; O2SAT 95
--- NOTE | 2016-04-15 18:35 | EKG ---
Date Performed: 04/12/2016 Time Performed: 22:06:53 PTAGE: 65 years EKG: SINUS TACHYCARDIA INCOMPLETE RIGHT BUNDLE BRANCH BLOCK NONSPECIFIC T-WAVE ABNORMALITY ABNOR MAL RHYTHM ECG PREVIOUS TRACING : 01/08/2016 18.04 Since previous tracing, no significant change noted DOCTOR: Yael Lemon Interpretating Date/Time 04/15/2016 18:34:11
== END 2016-04-14 15:35 | disposition hospice, inpatient (51) | DRG 560 ==
LOC: NEPA 13:57 → NEDA 17:23 → N06B 20:36
PROVIDERS: ADMIT Family Medicine; ATTEND Family Medicine
DX: M97.11XA Periprosthetic fracture around internal prosthetic right knee joint, initial encounter (principal); J98.11 Atelectasis; J96.10 Chronic respiratory failure, unspecified whether with hypoxia or hypercapnia; Z99.81 Dependence on supplemental oxygen; F33.9 Major depressive disorder, recurrent, unspecified; J44.9 Chronic obstructive pulmonary disease, unspecified; W18.09XA Striking against other object with subsequent fall, initial encounter; Y92.009 Unspecified place in unspecified non-institutional (private) residence as the place of occurrence of the external cause; F17.200 Nicotine dependence, unspecified, uncomplicated; K21.9 Gastro-esophageal reflux disease without esophagitis; M19.90 Unspecified osteoarthritis, unspecified site; Z51.5 Encounter for palliative care; Z66 Do not resuscitate; Z86.711 Personal history of pulmonary embolism
CPT/HCPCS: 71010; 73564; 80048; 80053; 81001; 85025; 85027; 85610; 85730; 86850; 86900; 86901; 87077; 87086; 87186; 93005; 94150; 94640; 94664; 96374; 96375; J0696; J2270; J2405; J7120; L1830